=== PATIENT | male | born 1985 | race Caucasian/White ===

== ENCOUNTER 2017-11-03 18:52 | Emergency (ER) | payer OTHER ==
[~2017-11-03] VITALS: Ht 182.9 cm; Wt 111.3 kg
[2017-11-03 19:00] VITALS: BP 113/73; PULSE 73; RESP 18; TEMP 98.6; O2SAT 96
[2017-11-03] MEDS ORDERED: ORPHENADRINE INJ 60 MG/2 ML AMP IM ONE (19:45)
[2017-11-03] MEDS ORDERED: KETOROLAC TROMETHAMINE 60 MG/2 ML (IM) VIAL IM ONE (19:45)
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
[2017-11-03] MEDS ORDERED: IBUP1TAB7 PO (20:05)
[2017-11-03] MEDS ORDERED: ROBA500T PO (20:05)
== END 2017-11-03 20:16 | disposition home or self-care (01) ==
LOC: PHEFT 18:52
DX: S13.4XXA Sprain of ligaments of cervical spine, initial encounter (principal); M54.5 Low back pain; V49.40XA Driver injured in collision with unspecified motor vehicles in traffic accident, initial encounter
CPT/HCPCS: 96372; 99283; J1885; J2360